=== PATIENT | male | born 1960 | race Caucasian/White ===

== ENCOUNTER → 2022-11-06 | Outpatient (CLI) | payer OTHER ==
--- NOTE | 2022-11-06 16:49 | CA ---
Transthoracic Echo Report Name: Josias Tejada Age: 62 Gender: M : 1960 Exam Date: 11/06/2022 12:31 Exam Location: [facility] Ht (in): 72 Wt (lb): 280 Ordering Physician: Hansa Beavers DO Attending/Referring Phys: Packager Queta Rosenthal RDCS Procedure CPT: Indications: I48.91 UNSPECIFIED ATRIAL FIBRILLATION Cardiac Hx: Technical Quality: Fair Contrast 1: Total Dose (mL): Contrast 2: Total Dose (mL): MEASUREMENTS (Male / Female) Normal Values 2D ECHO LV Diastolic Diameter PLAX 4.9 cm 4.2 - 5.9 / 3.9 - 5.3 cm LV Systolic Diameter PLAX 3.3 cm IVS Diastolic Thickness 1.5 cm 0.6 - 1.0 / 0.6 - 0.9 cm LVPW Diastolic Thickness 1.4 cm 0.6 - 1.0 / 0.6 - 0.9 cm LV Relative Wall Thickness 0.6 RV Internal Dim ED PLAX 3.0 cm LA Systolic Diameter LX 4.4 cm 3.0 - 4.0 / 2.7 - 3.8 cm LV Diastolic Volume MOD 4C 92.2 cm??? LV Systolic Volume MOD 4C 59.8 cm??? LV Ejection Fraction MOD 4C 35.1 % LV Cardiac Index MOD 4C 913.6 cm???/min???m??? LV Diastolic Length 4C 8.3 cm LV Systolic Length 4C 7.3 cm LV Diastolic Volume MOD 2C 101.3 cm??? LV Systolic Volume MOD 2C 63.8 cm??? LV Ejection Fraction MOD 2C 37.0 % LV Cardiac Index MOD 2C 1058.1 cm???/min???m??? LV Diastolic Length 2C 8.2 cm LV Systolic Length 2C 7.2 cm LA Volume 66.8 cm??? 18 - 58 / 22 - 52 cm??? M-MODE Aortic Root Diameter MM 3.3 cm MV E Point Septal Separation 0.3 cm AV Cusp Separation MM 2.3 cm DOPPLER AV Peak Velocity 130.7 cm/s AV Peak Gradient 6.8 mmHg MV Area PHT 4.3 cm??? MV Deceleration Time 201.2 ms TR Peak Velocity 201.3 cm/s TR Peak Gradient 16.2 mmHg Right Ventricular Systolic Press 21.2 mmHg FINDINGS Left Ventricle Left ventricular ejection fraction is estimated at 45-50 %. Left ventricular wall thickness normal. Moderately increased septal wall thickness. Right Ventricle Normal right ventricular size. Right ventricular systolic pressure within normal limits. Right Atrium Normal right atrial size. Left Atrium Mildly increased left atrial diameter. Mildly increased left atrial volume. Mitral Valve Structurally normal mitral valve. Mitral annular calcification. No mitral stenosis, regurgitation or prolapse. Aortic Valve Trileaflet aortic valve. No aortic valve stenosis or regurgitation. Tricuspid Valve Structurally normal tricuspid valve. Trace tricuspid regurgitation. Pulmonic Valve Pulmonic valve not well visualized. Trace pulmonic regurgitation. Pericardium No pericardial effusion. Aorta Normal size aortic root and proximal ascending aorta. CONCLUSIONS Mild LV systolic dysfunction Previewed by: Dr. Talha Barr MD (Electronically Signed) Final Date: 06 November 2022 16:49
== END | disposition home or self-care (01) ==
LOC: RADECHMAIN 12:11
PROVIDERS: ATTEND Family Medicine
DX: I51.9 Heart disease, unspecified (principal); I48.91 Unspecified atrial fibrillation
CPT/HCPCS: 93306

== ENCOUNTER 2022-11-10 10:58 | Day surgery (SDC) | payer OTHER ==
[2022-11-10] MEDS ORDERED: LACTATED RINGERS 1,000 ML IV SCH (11:13)
[2022-11-10] MEDS ORDERED: LIDOCAINE 1% (10MG/ML) FOR IV START INTRADERMA PRN (11:13)
[2022-11-10 11:36] LABS: Glucose,Whole Blood 88 mg/dL (70-110)
[2022-11-10 12:19] VITALS: TEMP 97
[2022-11-10] MEDS ORDERED: LIDOCAINE 2% INJ 20 MG/ML (2 ML VIAL) ONE (12:26)
[2022-11-10] MEDS ORDERED: PROPOFOL 10 MG/ML 20 ML VIAL IV ONE (12:26)
[2022-11-10 13:58] VITALS: RESP 18
[2022-11-10 14:20] VITALS: BP 126/79; PULSE 53
--- NOTE | 2022-11-10 16:39 | P.TEE ---
Date of Procedure: 11/10/22 Description of Procedure(s): Procedure performed: 1. Transesophageal Echocardiogram 2. Bubble Study 3. Synchronized Cardioversion. Indications: Atrial fibrillation Consent: I have discussed the risks, benefits and alternative therapies for the above-mentioned procedure. The patient has indicated understanding and acceptance of the risks of the procedure. Signed consent was obtained and was placed in the paper chart. Procedural Steps: Timeout was performed in usual fashion. Patient's heart rate, blood pressure, oxygen saturation and ECG were monitored. Bite block was placed between the jaw. Sedation was administered by anesthesia team. Please refer to their documentation. DERIK probe was advanced without difficulty and without any immediate complications to the esophagus. DERIK study was performed with color flow doppler, pulsed wave doppler and continuous wave doppler. Agitated saline bubbles were injected to assess for any intra-atrial shunt. The probe was then removed. Pacer pads were placed on the chest and back. Synchronized cardioversion was performed using 200J. It was successful in 1 attempt. Patient tolerated the procedure well. Patient was transferred to the post procedure area in stable and satisfactory condition. Complications: none FINDINGS Left Atrium : [Normal Left atrial size. No evidence of mass or thrombus seen] Left Atrial Appendage: [No evidence of thrombus or mass seen in WALT] Inter atrial septum: Redundant interatrial septum with evidence of PFO by color doppler and bubble study. Left Ventricle: [Normal global LV size and systolic function] Right Atrium: [Normal overall RV size] Right Ventricle: [Normal global RV size and systolic function] Aortic Valve: [Structurally normal Trileaflet, no significant calcification. No significant stenosis or regurgitation on color doppler assessment. ] Mitral Valve: [Struturally normal. No evidence of prolapse. Mild MR, likely functional. Pulmonic Valve: [Not well visualized.] Tricuspid Valve: [Structurally normal. ] Ascending aorta, Aortic root and Aortic arch: [Mild intimal thickening. No evidence of large atheroma or bulky calcification] Desceding aorta: [Mild intimal thickening. No evidence of large atheroma or bulky calcification] CONCLUSION: 1. No evidence of LA or WALT thrombus 2. Redundant inter atrial septum with evidence of patent foramen ovale 3. Successful cardioversion with 200J, 1 attempt
== END 2022-11-10 14:27 | disposition home or self-care (01) ==
LOC: OR 10:58
PROVIDERS: ATTEND Student in an Organized Health Care Education/Training Program
DX: I48.19 Other persistent atrial fibrillation (principal); Q21.12 Patent foramen ovale; I10 Essential (primary) hypertension; E66.9 Obesity, unspecified; Z68.38 Body mass index [BMI] 38.0-38.9, adult; F10.21 Alcohol dependence, in remission; Z86.69 Personal history of other diseases of the nervous system and sense organs; Z87.891 Personal history of nicotine dependence; G47.33 Obstructive sleep apnea (adult) (pediatric); E78.5 Hyperlipidemia, unspecified; Z79.811 Long term (current) use of aromatase inhibitors; Z79.899 Other long term (current) drug therapy; K21.9 Gastro-esophageal reflux disease without esophagitis
CPT/HCPCS: 93312; 93320; 93325; 92960; J2704; J2001

== ENCOUNTER → 2023-02-14 | Outpatient (CLI) | payer OTHER ==
--- NOTE | 2023-02-14 12:24 | P.SLEEP ---
History of Present Illness DATE: 02/14/2023 CONSULTATION/NEW PATIENT EVALUATION HISTORY OF PRESENT ILLNESS/SLEEP-WAKE EVALUATION: 62-year-old gentleman had been evaluated in the sleep center for possible obstructive sleep apnea hypopnea syndrome. SLEEP SCHEDULE: Usually sleep schedule from 11 PM to 6 AM 7 days a week. FALLING ASLEEP: No problems with falling asleep. DURING SLEEP: Patient snores and has witnessed episodes of stop breathing during the sleep. Positive history of awakenings from sleep 3 times with nocturia and restless leg symptoms. No history of hypnogogical hallucinations, sleep paralysis, or cataplexy. DURING THE DAY/WAKE STATE: Patient feels sleepiness during the day, has difficulties to place attention. Russell sleepiness scale is 4. Patient takes 1 nap during the day. PAST MEDICAL HISTORY: Hypertension, atrial fibrillation converted to normal sinus rhythm by cardioversion, left knee arthritis, depression, pulmonary hypertension. PAST SURGICAL HISTORY: Vasectomy, sinuses surgery. MEDICATIONS: Eliquis, lamotrigine, Ezetimibe, metoprolol, amlodipine, risperidone. SOCIAL HISTORY: Quit smoking at age of 21, alcohol consumption daily. FAMILY HISTORY: Heart problems, stroke, cancer, diabetes. REVIEW OF SYSTEMS: Snoring, multiple awakenings from sleep. No fevers. No double vision. No recent chest pain. No shortness of breath. No abdominal pain. No bleeding episodes. No blood in urine. No seizure episodes. PHYSICAL EXAMINATION: GENERAL: A pleasant patient without any distress. VITAL SIGNS: BP 128/76 , HR 88 , RR 16 , weight 282.6 pounds, height 6 foot 0.5 inches, body mass index 37.7 . HEENT: PERRLA, EOMI. Evaluation of oropharynx showed tongue protrudes midline, position of soft palate Mallampati 2, wide pillars and extremely short distance between soft palate and posterior pharyngeal wall. NECK: Supple. No JVD. Thyroid is not palpable. 18.5 inches in circumference. LUNGS: Clear to percussion and to auscultation. Good air exchange. No wheezing or rhonchi. HEART: S1, S2 regular. No murmurs, gallops or rubs. ABDOMEN: Soft and nontender. Bowel sounds are present. No organomegaly appreciated. EXTREMITIES: No clubbing or cyanosis. SED SPECIAL EDUCATION TEACHER: Awake, alert, and oriented x3. Cranial nerves 2 to 7 intact. There is no fasciculation or atrophy noted. No focal deficits observed. ASSESSMENT: 1. Snoring, witnessed episodes of stop breathing during the sleep, small oropharyngeal airspace, wide neck 18.5 inches in circumference. Obstructive sleep apnea-hypopnea syndrome. 2. History of pulmonary hypertension. 3. Hypertension. 4. History of atrial fibrillation, status post cardioversion. 5 status post nasal surgery for sinuses problems. 6 . History of nasal polyps. 7. History of depression. 8. Status post vasectomy. 9. Obesity, BMI 37.7 PLAN: 1. Polysomnography for evaluation of patient's breathing during sleep. 2. CPAP/BiPAP titration if sleep study confirms obstructive sleep apnea- hypopnea syndrome. 3. Preferable position during sleep on the side. 4. No driving if patient feels any sleepiness. Patient is aware of civil and criminal liability for unsafe driving. 5. Sleep hygiene with regular sleep time for at least 7.5-8 hours. 6. Watching and losing weight. Thank you very much for referring this patient for consultation. Sincerely, Ellis Mcfarland MD, PhD, FAASM. Diplomat of [place] [employer], Sleep Medicine Board by [place] [employer] [employer] Shoe Clerk of [facility] [place] Past Medical History Past Medical History: GERD/Reflux, Hyperlipidemia, Hypertension, Osteoarthritis (OA), Skin Disorder Additional Past Medical History / Comment(s): see Dr Yoandy Goodwin, abnormal EKG after not feeling well. BP has been on the low side last office visit. torn L rotator cuff, torn meniscus left knee. arthritis in those joints. pt has been heavy drinker all his life. quit 3 weeks ago. ? sleep apnea no testing yet. eczema to hands History of Any Multi-Drug Resistant Organisms: None Reported Additional Past Surgical History / Comment(s): colonoscopy, several sinus surgeries Past Anesthesia/Blood Transfusion Reactions: No Reported Reaction Additional Past Anesthesia/Blood Transfusion Reaction / Comment(s): problems with intubation with last sinus surgery - pt not sure what the problem was. no paper work. "throat was cut" pt refused to complete surgery. no treatment done Smoking Status: Former smoker - Past Family History Father History Unknown: Yes Additional Family Medical History / Comment(s): didnt know bio dad Mother Family Medical History: Cancer, Coronary Artery Disease (CAD) Brother(s) Family Medical History: Coronary Artery Disease (CAD) Sister(s) Family Medical History: Coronary Artery Disease (CAD) Additional Family Medical History / Comment(s): stents , pacemaker Medications and Allergies Home Medications Medication Instructions Recorded Confirmed Type Amlodipine/Benazepril 5-20 1 tab PO DAILY 11/08/22 11/10/22 History Apixaban [Eliquis] 5 mg PO BID 11/08/22 11/10/22 History Dupilumab [Dupixent Pen] 300 mg SQ Q15D 11/08/22 11/10/22 History Ezetimibe [Zetia] 10 mg PO DAILY 11/08/22 11/10/22 History Famotidine 40 mg PO HS 11/08/22 11/10/22 History Ibuprofen [Motrin Ib] 800 mg PO DIRECTED PRN 11/08/22 11/10/22 History Meclizine [Antivert] 25 mg PO Q8H PRN 11/08/22 11/10/22 History Metoprolol Succinate (ER) [Toprol 50 mg PO HS 11/08/22 11/10/22 History Xl] Rosuvastatin Calcium 10 mg PO HS 11/08/22 11/10/22 History lamoTRIgine 200 mg PO DAILY 11/08/22 11/10/22 History risperiDONE 3 mg PO HS 11/08/22 11/10/22 History Allergies Allergy/AdvReac Type Severity Reaction Status Date / Time No Known Allergies Allergy Verified 11/10/22 11:14 Sleep Note - Sleep Note Sleep Note: Temperature: Pulse Rate: Respiratory Rate: Blood Pressure: SpO2: Height: Weight: BMI: Neck Circumference:
== END ==
LOC: 3 N SLEEP 11:39
PROVIDERS: ATTEND Internal Medicine
DX: G47.33 Obstructive sleep apnea (adult) (pediatric) (principal); I48.91 Unspecified atrial fibrillation; F32.A Depression, unspecified; E66.9 Obesity, unspecified; I27.20 Pulmonary hypertension, unspecified; Z68.37 Body mass index [BMI] 37.0-37.9, adult; Z98.890 Other specified postprocedural states; Z98.52 Vasectomy status; Z87.09 Personal history of other diseases of the respiratory system; Z79.01 Long term (current) use of anticoagulants; Z79.899 Other long term (current) drug therapy; Z87.891 Personal history of nicotine dependence; Z87.39 Personal history of other diseases of the musculoskeletal system and connective tissue
CPT/HCPCS: 99211

== ENCOUNTER 2023-03-27 19:30 | Outpatient (CLI) | payer OTHER ==
--- NOTE | 2023-03-28 13:38 | P.PCN ---
Description of Procedure: POLYSOMNOGRAPHY REPORT PROCEDURE(S)/DATE(S): Polysomnography 03/27/2023 CLINICAL: Patient has been seen in the sleep center for evaluation of obstructive sleep apnea-hypopnea syndrome. Please see my consultation. Sleep study has been done for evaluation of patient breathing during the sleep. PROCEDURE: The standard montage for clinical polysomnography included the electroencephalogram, the electrooculogram, the mentalis surface electromyography and Lead II cardiography. The respiratory battery consisted of measurements of nasal/buccal air flow, pressure transducer measurements from nose, thoracic and/or abdominal effort and intercostal surface electromyography. Video monitoring has been done to check for any parasomnia events. Nocturnal oxyhemoglobin saturations were obtained by finger oximetry. Step-taylor titration with positive airway pressure was utilized to control the respiratory events, if necessary. RESULTS: During the diagnostic sleep study sleep efficiency was extremely short only 21.3 %. Latency to sleep onset was prolonged to 53.0 min. Sleep archite cture showed stage NI in acceptable range 7.8 %, Delta sleep was absent 0 %, REM sleep was absent 0 %. Total sleep time only 102.0 minutes. Respiratory channel showed 0 obstructive apneas, 0 mixed apneas, 0 central apneas, 14 hypopneas with lowest oxygen level 89%. Total apnea hypopnea index was 8.2. Heart rate was in the range between 76 and 97, average 81. EMG showed 29.4 periodic limb movements per hour with 0 micro-arousals per hour. IMPRESSIONS: 1. Patient slept only for 102 minutes, which is less than 2 hours and does not rule out to make any conclusions about patient respiration following the standard. 2. Significant periodic limb movements have been documented. Please see other impressions from consultation PLAN: 1. We will do home sleep apnea test. 2. Losing weight program. 3. Sleep hygiene with regular time in bed for at least 7-1/2 hours. 4. No driving if feeling sleepiness. 5. Please check iron profile including ferritin level. Low level of iron may increase the risk for periodic limb movements. Thank you very much for allowing me to participate in the management of your patient. Sincerely, Ellis Mcfarland MD, PhD, FAASM. Diplomat of [place] [employer], Sleep Medicine Board by [place] [employer] Purse Framer of [facility] [place]
== END 2023-03-28 06:05 | disposition home or self-care (01) ==
LOC: 3 N SLEEP 19:30
PROVIDERS: ATTEND Internal Medicine
DX: G47.33 Obstructive sleep apnea (adult) (pediatric) (principal); G47.61 Periodic limb movement disorder

== ENCOUNTER → 2023-04-13 | Outpatient (CLI) | payer OTHER ==
--- NOTE | 2023-04-18 13:49 | P.PCN ---
Description of Procedure: CLINICAL: A home sleep apnea test has been done for confirmation of possible obstructive sleep apnea-hypopnea syndrome. DESCRIPTION OF PROCEDURE: RESULTS: Recording time was 8 hours 7 minutes. Evaluation time was 7 hours 56 minutes. Evaluation time is sufficient for making conclusion about results of the test. Raw data of sleep recording has been reviewed and is adequate. Respiratory channel showed 17 apneas and 128 hypopneas. Apnea-hypopnea index was 18.3 per hour. Pulse rate in the range between minimum 54, maximum 128, average 71 by computer calculation. Lowest desaturation was 81%. IMPRESSION: 1. Moderate Obstructive Sleep Apnea Hypopnea Syndrome. Please see other impressions from consultation. PLAN: 1. The patient should have PAP titration for correction of respiratory abnormallities during sleep. 2. I will see patient for follow up visit to discuss results of the test, evaluate clinical response on treatment with PAP therapy and make any necessary adjustments related to mask fitting, pressure, and humidification. 3. Watching and losing weight. 4. Sleep hygiene with regular time in bed for at least 8 hours. 5. No driving if feeling any sleepiness. Thank you very much for allowing me to participate in the management of your patient. Sincerely, Ellis Mcfarland MD, PhD, FAASM Diplomat of [place] [employer] Sleep Medicine Board of [place] [employer] Actuary of [facility] [place] cc: Hansa Beavers DO
== END ==
LOC: 3 N SLEEP 12:58
PROVIDERS: ATTEND Internal Medicine
DX: G47.33 Obstructive sleep apnea (adult) (pediatric) (principal)

== ENCOUNTER 2023-05-04 13:27 | Observation (INO) | payer OTHER ==
[2023-05-04 14:20] LABS: Anisocytosis Slight; Basophils % (A) 0 %; Eosinophils % (A) 1 %; HCT 44.3 % (39.0-53.0); HGB 14.6 gm/dL (13.0-17.5); Lymphocytes # (A) 2.2 k/uL (1.0-4.8); Lymphocytes % (A) 48 %; MCH 29.4 pg (25.0-35.0); MCHC 32.9 g/dL (31.0-37.0); MCV 89.3 fL (80.0-100.0); Mean Platelet Volume 9.8; Monocytes # (A) 0.4 k/uL (0-1.0); Monocytes % (A) 8 %; Neutrophils # (A) 1.9 k/uL (1.3-7.7); Neutrophils % (A) 41 %; Platelet Count 155 k/uL (150-450); RBC 4.96 m/uL (4.30-5.90); RDW 18.8 % (11.5-15.5); WBC 4.6 k/uL (3.8-10.6)
--- NOTE | 2023-05-04 14:25 | XR ---
EXAMINATION TYPE: XR chest 2V DATE OF EXAM: 05/04/2023 COMPARISON: NONE HISTORY: Shortness of breath TECHNIQUE: Frontal and lateral views of the chest are obtained. FINDINGS: Scattered senescent parenchymal changes noted. No evidence for infiltrate. No evidence for atelectasis. Heart size is stable. Mediastinal structures are stable and grossly unremarkable. No evidence for hilar prominence. Degenerative changes dorsal spine. IMPRESSION: 1. No evidence for acute pulmonary disease.
[2023-05-04] MEDS: SODIUM CHLORIDE 0.9% 500 ML 500 ML IV STA (14:27)
[2023-05-04] MEDS: DILTIAZEM DRIP BOLUS FROM BAG 1 MG SOLN IV ONE (14:27)
[2023-05-04] MEDS: DILTIAZEM 125 MG in SODIUM CHLORIDE 0.9% 100 ML IV SCH (14:27)
[2023-05-04 14:32] LABS: INR 1.1 (<1.2); Partial Thromboplastin Time 26.7 sec (22.0-30.0); Prothrombin Time 11.7 sec (10.0-12.5)
[2023-05-04 14:37] LABS: ALT 74 U/L (4-49); AST 69 U/L (17-59); African American GFR (CKD) >90 (>60 ml/min/1.73 sqM); Albumin 4.7 g/dL (3.5-5.0); Alkaline Phosphatase 78 U/L (38-126); Anion Gap 7 mmol/L; Blood Urea Nitrogen 15 mg/dL (9-20); Calcium 9.9 mg/dL (8.4-10.2); Carbon Dioxide 25 mmol/L (22-30); Chloride 105 mmol/L (98-107); Glucose 135 mg/dL (74-99); Non-African American GFR(CKD) 83 (>60 ml/min/1.73 sqM); Potassium 4.2 mmol/L (3.5-5.1); Sodium 137 mmol/L (137-145); Total Bilirubin 0.9 mg/dL (0.2-1.3); Total Protein 8.2 g/dL (6.3-8.2)
[2023-05-04] MEDS ORDERED: NITROGLYCERIN SL TABS 0.4 MG TAB SUBLINGUAL PRN (15:48)
[2023-05-04] MEDS ORDERED: HYDROcodone/APAP 10-325MG 1 EACH TAB PO PRN (15:49)
--- NOTE | 2023-05-04 15:51 | ED ---
Arrhythmia/Palpitations HPI - General Chief Complaint: Arrhythmia/Palpitations Stated Complaint: AFIB Time Seen by Provider: 05/04/23 13:33 Source: patient, RN notes reviewed Mode of arrival: ambulatory Limitations: no limitations - History of Present Illness Initial Comments: 63-year-old male presents emergency department complaint of palpitations, A-fib. Patient states he is scheduled for hand surgery today was found to be in A-fib by surgeon. Patient was sent here actually discussed with his mask designer Dr. Pitt. Patient states he has no current symptoms other mild palpitations. Patient normally takes Eliquis for his A-fib. Patient states his last dose of metoprolol was last night. - Related Data Home Medications Medication Instructions Recorded Confirmed Apixaban [Eliquis] 5 mg PO BID 11/08/22 05/04/23 Dupilumab [Dupixent Pen] 300 mg SQ Q14D 11/08/22 05/04/23 Ezetimibe [Zetia] 10 mg PO DAILY 11/08/22 05/04/23 Famotidine 40 mg PO HS 11/08/22 05/04/23 Rosuvastatin Calcium 10 mg PO HS 11/08/22 05/04/23 lamoTRIgine 200 mg PO DAILY 11/08/22 05/04/23 risperiDONE 3 mg PO HS 11/08/22 05/04/23 Doxycycline Hyclate 100 mg PO BID 05/04/23 05/04/23 HYDROcodone/APAP 10-325MG [[employer] 1 tab PO Q4-6H PRN 05/04/23 05/04/23 10-325] Metoprolol Succinate (ER) [Toprol 50 mg PO HS 05/04/23 05/04/23 Xl] Pantoprazole [Protonix] 40 mg PO DAILY@1500 05/04/23 05/04/23 amLODIPine BESYLATE/BENAZEPRIL 1 cap PO DAILY 05/04/23 05/04/23 [Lotrel 5-20 mg Capsule] predniSONE See Taper PO DAILY 05/04/23 05/04/23 Allergies Allergy/AdvReac Type Severity Reaction Status Date / Time No Known Allergies Allergy Verified 05/04/23 14:34 Review of Systems ROS Statement: Those systems with pertinent positive or pertinent negative responses have been documented in the HPI. ROS Other: All systems not noted in ROS Statement are negative. Past Medical History Past Medical History: Atrial Fibrillation, GERD/Reflux, Hyperlipidemia, Hypertension, Osteoarthritis (OA), Skin Disorder Additional Past Medical History / Comment(s): see Dr Yoandy Calderón&Karen, abnormal EKG after not feeling well. BP has been on the low side last office visit. torn L rotator cuff, torn meniscus left knee. arthritis in those joints. pt has been heavy drinker all his life. quit 3 weeks ago. ? sleep apnea no testing yet. eczema to hands History of Any Multi-Drug Resistant Organisms: None Reported Additional Past Surgical History / Comment(s): colonoscopy, several sinus surgeries Past Anesthesia/Blood Transfusion Reactions: No Reported Reaction Additional Past Anesthesia/Blood Transfusion Reaction / Comment(s): problems with intubation with last sinus surgery - pt not sure what the problem was. no paper work. "throat was cut" pt refused to complete surgery. no treatment done Past Psychological History: Bipolar Smoking Status: Former smoker Past Alcohol Use History: Occasional Past Drug Use History: None Reported - Past Family History Father History Unknown: Yes Additional Family Medical History / Comment(s): didnt know bio dad Mother Family Medical History: Cancer, Coronary Artery Disease (CAD) Brother(s) Family Medical History: Coronary Artery Disease (CAD) Sister(s) Family Medical History: Coronary Artery Disease (CAD) Additional Family Medical History / Comment(s): stents , pacemaker General Exam Limitations: no limitations General appearance: alert, in no apparent distress Head exam: Present: atraumatic, normocephalic, normal inspection Eye exam: Present: normal appearance, PERRL, EOMI. Absent: scleral icterus, conjunctival injection, periorbital swelling ENT exam: Present: normal exam, normal oropharynx, mucous membranes moist Neck exam: Present: normal inspection, full ROM. Absent: tenderness, meningismus, lymphadenopathy Respiratory exam: Present: normal lung sounds bilaterally. Absent: respiratory distress, wheezes, rales, rhonchi, stridor Cardiovascular Exam: Present: tachycardia, irregular rhythm, normal heart sounds. Absent: regular rate, normal rhythm, systolic murmur, diastolic murmur, rubs, gallop, clicks GI/Abdominal exam: Present: soft, normal bowel sounds. Absent: distended, tenderness, guarding, rebound, rigid Course Vital Signs 05/04/23 05/04/23 05/04/23 13:29 14:05 14:29 Temperature 98.1 F Pulse Rate 115 H 155 H 111 H Respiratory 20 18 18 Rate Blood Pressure 111/78 122/70 O2 Sat by Pulse 99 96 96 Oximetry 05/04/23 15:14 Temperature Pulse Rate 108 H Respiratory 16 Rate Blood Pressure 130/79 O2 Sat by Pulse 98 Oximetry EKG Findings - EKG Comments: EKG Findings:: EKG performed at 13: 37 A-fib with RVR rate of 126 QRS 86 QT/QTc 303/378 - EKG Results: EKG: interpreted by BLAKE Medical Decision Making - Medical Decision Making Was pt. sent in by a medical professional or institution (, PA, CAR PICK UP DRIVER, urgent care, hospital, or senior care...) When possible be specific @ -[Surgeon, mask designer Did you speak to anyone other than the patient for history (EMS, parent, family, police, friend...)? What history was obtained from this source @ -No Did you review nursing and triage notes (agree or disagree)? Why? @ -I reviewed and agree with nursing and triage notes Were old charts reviewed (outside hosp., previous admission, EMS record, old EKG, old radiological studies, urgent care reports/EKG's, senior care records)? Report findings @ -No old charts were reviewed Differential Diagnosis (chest pain, altered mental status, abdominal pain women, abdominal pain men, vaginal bleeding, weakness, fever, dyspnea, syncope, headache, dizziness, GI bleed, back pain, seizure, CVA, palpatations, mental health, musculoskeletal)? @ -Differential Palpitations Ventricular arrhythmias, atrial arrhythmias, myocardial infarction, anemia, thyrotoxicosis, electrolyte imbalance, hypokalemia, pulmonary embolism, pulmonary disease, drugs, alcohol, anxiety, stress.... This is not meant to be an all-inclusive list. EKG interpreted by me (3pts min.). @ -As above X-rays interpreted by me (1pt min.). @ -[Chest x-ray shows no acute cardiopulmonary process CT interpreted by me (1pt min.). @ -None done U/S interpreted by me (1pt. min.). @ -None done What testing was considered but not performed or refused? (CT, X-rays, U/S, labs)? Why? @ -None What meds were considered but not given or refused? Why? @ -None Did you discuss the management of the patient with other professionals (professionals i.e. , PA, CAR PICK UP DRIVER, lab, RT, psych nurse, oncology social worker, mask designer, teacher, horticultural technical officer, showcase trimmer)? Give summary @ -Dr. Lopez for admission for A-fib RVR Was smoking cessation discussed for >3mins.? @ -No Was critical care preformed (if so, how long)? @ -35-minute Were there social determinants of health that impacted care today? How? (Homelessness, low income, unemployed, alcoholism, drug addiction, transportation, low edu. Level, literacy, decrease access to med. care, senior care, rehab)? @ -No Was there de-escalation of care discussed even if they declined (Discuss DNR or withdrawal of care, Hospice)? DNR status @ -No What co-morbidities impacted this encounter? (DM, HTN, Smoking, COPD, CAD, Cancer, CVA, ARF, Chemo, Hep., AIDS, mental health diagnosis, sleep apnea, morbid obesity)? @ -A-fib e Was patient admitted / discharged? Hospital course, mention meds given and route, prescriptions, significant lab abnormalities, going to OR and other pertinent info. @ -[Admitted to the hospital for A-fib RVR patient was started on Cardizem. Patient will continue anticoagulants. Patient will be closely monitored and admitted for further treatment. Undiagnosed new problem with uncertain prognosis? @ -No Drug Therapy requiring intensive monitoring for toxicity (Heparin, Nitro, Insulin, Cardizem)? @ -Cardizem Were any procedures done? @ -No Diagnosis/symptom? @ -[A-fib RVR Acute, or Chronic, or Acute on Chronic? @ -Acute Uncomplicated (without systemic symptoms) or Complicated (systemic symptoms)? @ -[Complicated Side effects of treatment? @ -[No Exacerbation, Progression, or Severe Exacerbation? @ -No Poses a threat to life or bodily function? How? (Chest pain, [place], [place], pneumonia, PE, COPD, DKA, ARF, appy, cholecystitis, CVA, Diverticulitis, Homicidal, Suicidal, threat to staff... and all critical care pts) @ -[Yes dysrhythmia - Lab Data Result diagrams: 05/04/23 14:00 05/04/23 14:00 Lab Results 05/04/23 05/04/23 05/04/23 Range/Units 14:00 14:00 14:00 WBC 4.6 (3.8-10.6) k/uL RBC 4.96 (4.30-5.90) m/uL Hgb 14.6 (13.0-17.5) gm/dL Hct 44.3 (39.0-53.0) % MCV 89.3 (80.0-100.0) fL MCH 29.4 (25.0-35.0) pg MCHC 32.9 (31.0-37.0) g/dL RDW 18.8 H (11.5-15.5) % Plt Count 155 (150-450) k/uL MPV 9.8 Neutrophils % 41 % Lymphocytes % 48 % Monocytes % 8 % Eosinophils % 1 % Basophils % 0 % Neutrophils # 1.9 (1.3-7.7) k/uL Lymphocytes # 2.2 (1.0-4.8) k/uL Monocytes # 0.4 (0-1.0) k/uL Eosinophils # 0.0 (0-0.7) k/uL Basophils # 0.0 (0-0.2) k/uL Anisocytosis Slight PT 11.7 (10.0-12.5) sec INR 1.1 (<1.2) APTT 26.7 (22.0-30.0) sec Sodium 137 (137-145) mmol/L Potassium 4.2 (3.5-5.1) mmol/L Chloride 105 (98-107) mmol/L Carbon Dioxide 25 (22-30) mmol/L Anion Gap 7 mmol/L BUN 15 (9-20) mg/dL Creatinine 0.98 (0.66-1.25) mg/dL Est GFR (CKD-EPI)AfAm >90 (>60 ml/min/1.73 sqM) Est GFR (CKD-EPI)NonAf 83 (>60 ml/min/1.73 sqM) Glucose 135 H (74-99) mg/dL Calcium 9.9 (8.4-10.2) mg/dL Magnesium 2.0 (1.6-2.3) mg/dL Total Bilirubin 0.9 (0.2-1.3) mg/dL AST 69 H (17-59) U/L ALT 74 H (4-49) U/L Alkaline Phosphatase 78 (38-126) U/L Troponin I (0.000-0.034) ng/mL Total Protein 8.2 (6.3-8.2) g/dL Albumin 4.7 (3.5-5.0) g/dL 05/04/23 Range/Units 14:00 WBC (3.8-10.6) k/uL RBC (4.30-5.90) m/uL Hgb (13.0-17.5) gm/dL Hct (39.0-53.0) % MCV (80.0-100.0) fL MCH (25.0-35.0) pg MCHC (31.0-37.0) g/dL RDW (11.5-15.5) % Plt Count (150-450) k/uL MPV Neutrophils % % Lymphocytes % % Monocytes % % Eosinophils % % Basophils % % Neutrophils # (1.3-7.7) k/uL Lymphocytes # (1.0-4.8) k/uL Monocytes # (0-1.0) k/uL Eosinophils # (0-0.7) k/uL Basophils # (0-0.2) k/uL Anisocytosis PT (10.0-12.5) sec INR (<1.2) APTT (22.0-30.0) sec Sodium (137-145) mmol/L Potassium (3.5-5.1) mmol/L Chloride (98-107) mmol/L Carbon Dioxide (22-30) mmol/L Anion Gap mmol/L BUN (9-20) mg/dL Creatinine (0.66-1.25) mg/dL Est GFR (CKD-EPI)AfAm (>60 ml/min/1.73 sqM) Est GFR (CKD-EPI)NonAf (>60 ml/min/1.73 sqM) Glucose (74-99) mg/dL Calcium (8.4-10.2) mg/dL Magnesium (1.6-2.3) mg/dL Total Bilirubin (0.2-1.3) mg/dL AST (17-59) U/L ALT (4-49) U/L Alkaline Phosphatase (38-126) U/L Troponin I <0.012 (0.000-0.034) ng/mL Total Protein (6.3-8.2) g/dL Albumin (3.5-5.0) g/dL Critical Care Time Critical Care Time: Yes Total Critical Care Time: 35 Disposition Clinical Impression: Atrial fibrillation with RVR Disposition: ADMITTED IP TO THIS HOSP Condition: Fair Referrals: Hansa Beavers DO [Primary Care Provider] - 1-2 days Time of Disposition: 15:31
[2023-05-04] MEDS: APIXABAN 5 MG TAB PO SCH (16:00)
[2023-05-04] MEDS: ATORVASTATIN 20 MG TAB PO SCH (23:20)
[2023-05-04] MEDS: FAMOTIDINE 20 MG TAB PO SCH (23:20)
[2023-05-04] MEDS: METOPROLOL SUCCINATE (ER) 50 MG TAB.ER.24H PO SCH (23:20)
[2023-05-04] MEDS: risperiDONE 1 MG TAB PO SCH (23:20)
[2023-05-05 07:24] VITALS: TEMP 98.2
[2023-05-05] MEDS: amLODIPine 5 MG TAB PO SCH (08:51)
[2023-05-05] MEDS: lisinopriL 20 MG TAB PO SCH (08:51)
[2023-05-05] MEDS: lamoTRIgine 100 MG TAB PO SCH (08:51)
[2023-05-05] MEDS: EZETIMIBE 10 MG TAB PO SCH (08:51)
[2023-05-05] MEDS ORDERED: NON FORMULARY DRUG (Amlodipine Besylate/Benazepril [Lotrel 5-20 Mg Capsule] 1 EACH Capsule PO SCH (09:00)
[2023-05-05 12:05] VITALS: BP 117/63; PULSE 79; RESP 18
--- NOTE | 2023-05-05 13:00 | P.HPIM ---
History of Present Illness H&P Date: 05/05/23 History of present illness; patient 63-year-old gentleman past medical history significant for persistent A-fib who was sent into the ER from hand surgeon's office after being found to be in A-fib with RVR. Patient was scheduled to undergo hand surgery today but when he presented to the hand surgeons office, patient was found to be in A-fib with RVR. They contacted patient's cloth shrinker and they told him to come to the ER. Patient denies any complaint of palpitation. There was no complaint of chest pain. There was no complaint of orthopnea or PND. There is no complaint of nausea, vomiting, abdominal pain. Initial lab work done in the ER showed WBC 4.6, hemoglobin 14.6, platelet count 155, sodium 137, potassium 4.2, BUN 15, creatinine 0.98, glucose 135, troponin 0.012 EKG done in the ER showed heart rate of 91, no ST segment elevation or depression seen, no T-wave inversions seen. Irregular rate and rhythm Chest x-ray done in the ER no evidence for acute pulmonary disease Patient admitted to internal medicine service REVIEW OF SYSTEMS: CONSTITUTIONAL: No fever, no malaise, no fatigue. HEENT: No recent visual problems or hearing problems. Denied any sore throat. CARDIOVASCULAR: No chest pain, orthopnea, PND, no palpitations, no syncope. PULMONARY: No shortness of breath, no cough, no hemoptysis. GASTROINTESTINAL: No diarrhea, no nausea, no vomiting, no abdominal pain. NEUROLOGICAL: No headaches, no weakness, no numbness. HEMATOLOGICAL: Denies any bleeding or petechiae. GENITOURINARY: Denies any burning micturition, frequency, or urgency. MUSCULOSKELETAL/RHEUMATOLOGICAL: Denies any joint pain, swelling, or any muscle pain. ENDOCRINE: Denies any polyuria or polydipsia. The rest of the 14-point review of systems is negative. PHYSICAL EXAMINATION: GENERAL: The patient is alert and oriented x3, not in any acute distress. Well developed, well nourished. HEENT: Pupils are round and equally reacting to light. EOMI. No scleral icterus. No conjunctival pallor. Normocephalic, atraumatic. No pharyngeal erythema. No thyromegaly. CARDIOVASCULAR: S1 and S2 present. No murmurs, rubs, or gallops. PULMONARY: Chest is clear to auscultation, no wheezing or crackles. ABDOMEN: Soft, nontender, nondistended, normoactive bowel sounds. No palpable organomegaly. MUSCULOSKELETAL: No joint swelling or deformity. EXTREMITIES: No cyanosis, clubbing, or pedal edema. NEUROLOGICAL: Gross neurological examination did not reveal any focal deficits. SKIN: No rashes. Assessment and plan Paroxysmal A-fib with RVR Hyperlipidemia History of seizures Monitor vital signs Monitor CBC Monitor CMP Continue telemetry monitoring Trend troponins. Patient started on Cardizem drip, Continue Toprol-XL continue Eliquis Resume home meds Consult cardiology Labs and medication were reviewed.. Continue same treatment. Continue with symptomatic treatment. Resume home medication. Monitor labs and vitals. DVT and GI prophylaxis. Further recommendations as per clinical course of the patient Dictation was produced using [employer] dictation software. please excuse any grammatical, word or spelling errors. Past Medical History Past Medical History: Atrial Fibrillation, GERD/Reflux, Hyperlipidemia, Hypertension, Osteoarthritis (OA), Skin Disorder Additional Past Medical History / Comment(s): sleep study x2, does not know results. DERIK with Dr. Pitt 10/2022 History of Any Multi-Drug Resistant Organisms: None Reported Additional Past Surgical History / Comment(s): colonoscopy, several sinus surgeries Past Anesthesia/Blood Transfusion Reactions: No Reported Reaction Additional Past Anesthesia/Blood Transfusion Reaction / Comment(s): problems with intubation with last sinus surgery - pt not sure what the problem was. no paper work. "throat was cut" pt refused to complete surgery. no treatment done Past Psychological History: Bipolar Additional Psychological History / Comment(s): ? ADD Smoking Status: Former smoker Past Alcohol Use History: Occasional Additional Past Alcohol Use History / Comment(s): quit smoker at 21 yrs old < 1ppd, Hx lifelong drinker, tried quitting alcohol last september. states he currently drinks 10-15 drinks per day 05/05/2023 Past Drug Use History: None Reported - Past Family History Father History Unknown: Yes Additional Family Medical History / Comment(s): didnt know bio dad Mother Family Medical History: Cancer, Coronary Artery Disease (CAD) Brother(s) Family Medical History: Coronary Artery Disease (CAD) Sister(s) Family Medical History: Coronary Artery Disease (CAD) Additional Family Medical History / Comment(s): stents , pacemaker Medications and Allergies Home Medications Medication Instructions Recorded Confirmed Type Apixaban [Eliquis] 5 mg PO BID 11/08/22 05/04/23 History Dupilumab [Dupixent Pen] 300 mg SQ Q14D 11/08/22 05/04/23 History Ezetimibe [Zetia] 10 mg PO DAILY 11/08/22 05/04/23 History Famotidine 40 mg PO HS 11/08/22 05/04/23 History Rosuvastatin Calcium 10 mg PO HS 11/08/22 05/04/23 History lamoTRIgine 200 mg PO DAILY 11/08/22 05/04/23 History risperiDONE 3 mg PO HS 11/08/22 05/04/23 History Doxycycline Hyclate 100 mg PO BID 05/04/23 05/04/23 History HYDROcodone/APAP 10-325MG [[place] 1 tab PO Q4-6H PRN 05/04/23 05/04/23 History 10-325] Metoprolol Succinate (ER) [Toprol 50 mg PO HS 05/04/23 05/04/23 History Xl] Pantoprazole [Protonix] 40 mg PO DAILY@1500 05/04/23 05/04/23 History amLODIPine BESYLATE/BENAZEPRIL 1 cap PO DAILY 05/04/23 05/04/23 History [Lotrel 5-20 mg Capsule] predniSONE See Taper PO DAILY 05/04/23 05/04/23 History Allergies Allergy/AdvReac Type Severity Reaction Status Date / Time No Known Allergies Allergy Verified 05/04/23 14:34 Physical Exam Vitals: Vital Signs Temp Pulse Pulse Resp BP BP Pulse Ox 05/05/23 08:45 83 16 131/83 96 05/05/23 08:05 96 05/05/23 04:00 98.2 F 72 18 119/70 97 05/05/23 00:00 64 16 117/70 98 05/04/23 20:55 90 18 118/70 97 05/04/23 20:04 98 16 131/87 97 05/04/23 20:00 97.8 F 71 16 128/81 97 05/04/23 17:58 98 16 109/69 97 05/04/23 16:02 122 H 16 128/73 97 05/04/23 15:14 108 H 16 130/79 98 05/04/23 14:29 111 H 18 96 05/04/23 14:05 155 H 18 122/70 96 05/04/23 13:29 98.1 F 115 H 20 111/78 99 Intake and Output 05/04/23 05/05/23 05/05/23 22:59 06:59 14:59 Intake Total 8 10 Balance 8 10 Intake: IV 10 Invasive Line 1 10 Intake, IV Titration 8 Amount Diltiazem 125 mg In 8 Sodium Chloride 0.9% 100 ml @ 5 MG/HR 5 mls/hr IV .Q24H [facility] Rx#:[id number] Other: # Voids 1 1 Weight 126.099 kg Results CBC & Chem 7: 05/04/23 14:00 05/04/23 14:00 Labs: Abnormal Lab Results - Last 24 Hours (Table) 05/04/23 05/04/23 Range/Units 14:00 14:00 RDW 18.8 H (11.5-15.5) % Glucose 135 H (74-99) mg/dL AST 69 H (17-59) U/L ALT 74 H (4-49) U/L Thrombosis Risk Factor Assmnt - Choose All That Apply Any of the Below Risk Factors Present?: Yes Each Factor Represents 1 point: Obesity (BMI >25) Other Risk Factors: Yes Each Risk Factor Represents 2 Points: Age 61-74 years Other congenital or acquired thrombophilia - If yes, enter type in comment: No Thrombosis Risk Factor Assessment Total Risk Factor Score: 3 Thrombosis Risk Factor Assessment Level: Moderate Risk
[2023-05-05] MEDS: FLECAINIDE 50 MG TAB PO SCH (13:34)
--- NOTE | 2023-05-05 14:18 | P.CRDCN ---
History of Present Illness History of present illness: HISTORY OF PRESENTING ILLNESS This is a pleasant 63-year-old male past medical history significant for with paroxysmal atrial fib status post cardioversion, hypertension, sleep ap milo, heavy alcohol use, dyslipidemia and obesity. He follows in the office with Dr. Pitt. We have been asked to see in consultation for atrial fib. He was going to have an outpatient tendon repair of his right hand yesterday and was found to be in A. fib with RVR. He was sent here. He was completely asymptomatic, he has no shortness of breath, palpitations, dizziness or chest pain. He admits he has been drinking alcohol again after sustaining for a few months after his cardioversion in October. He recently had a sleep study which she has not yet gotten the results of. In our system and shows it is positive for moderate obstructive sleep apnea. Advised him to call their office next week and discuss CPAP. DIAGNOSTICS EKG reveals atrial fib heart rate of 91. Telemetry tracings indicate atrial fib with controlled ventricular rate. Chest xray negative for acute cardiopulmonary process. Laboratory reviewed, CBC unremarkable, sodium 137, potassium 4.2, creatinine 0.98, magnesium 2.0, troponin negative 3. Current cardiac medications include L across 5 mg twice a day, Zetia 10 mg fany y, Toprol 50 mg at bedtime, rosuvastatin 10 mg at bedtime, amlodipine/benazepril 5/20 mg daily. REVIEW OF SYSTEMS At the time of my exam: CONSTITUTIONAL: Denies fever or chills. CARDIOVASCULAR: Denies chest pain, shortness of breath, orthopnea, PND or palpitations. RESPIRATORY: Denies cough. GASTROINTESTINAL: Denies abdominal pain, diarrhea, constipation, nausea or vomiting. MUSCULOSKELETAL: Denies myalgias. NEUROLOGIC: Denies numbness, tingling, headache or weakness. ENDOCRINE: Denies fatigue, weight change, polydipsia or polyurina. GENITOURINARY: Denies burning, hematuria or urgency with micturation. HEMATOLOGIC: Denies history of anemia or bleeding. PHYSICAL EXAMINATION Blood pressure 117/63 heart rate 79 afebrile and maintaining oxygen saturation on room air. CONSTITUTIONAL: No apparent distress. HEENT: Head is normocephalic. Pupils are equal, round. Sclerae anicteric. Mucous membranes of the mouth are moist. No JVD. No carotid bruit. CHEST EXAMINATION: Lungs are clear to auscultation. No chest wall tenderness is noted on palpation or with deep breathing. HEART EXAMINATION: Irregular rate and rhythm. S1, S2 heard. No murmurs, gallops or rub. ABDOMEN: Soft, nontender. EXTREMITIES: 2+ peripheral pulses, no lower extremity edema and no calf tenderness. NEUROLOGIC EXAMINATION: Patient is awake, alert and oriented x3. ASSESSMENT Paroxysmal atrial fibrillation with rapid ventricular rate Hypertension Hyperlipidemia Alcohol use Obesity PLAN Discontinue Cardizem infusion. Initiate flecainide 50 mg twice a day. Continue all her questions for thromboembolic protection. Advise complete alcohol cessation, he verbalizes understanding and is in agreement. Follow-up in the office next week with an EKG. He can be discharged home today, new Rx sent to his pharmacy. Nurse Practitioner note has been reviewed, I agree with a documented findings and plan of care. Patient was seen and examined. Past Medical History Past Medical History: Atrial Fibrillation, GERD/Reflux, Hyperlipidemia, Hypertension, Osteoarthritis (OA), Skin Disorder Additional Past Medical History / Comment(s): sleep study x2, does not know results. DERIK with Dr. Pitt 10/2022 History of Any Multi-Drug Resistant Organisms: None Reported Additional Past Surgical History / Comment(s): colonoscopy, several sinus surgeries Past Anesthesia/Blood Transfusion Reactions: No Reported Reaction Additional Past Anesthesia/Blood Transfusion Reaction / Comment(s): problems with intubation with last sinus surgery - pt not sure what the problem was. no paper work. "throat was cut" pt refused to complete surgery. no treatment done Past Psychological History: Bipolar Additional Psychological History / Comment(s): ? ADD Smoking Status: Former smoker Past Alcohol Use History: Occasional Additional Past Alcohol Use History / Comment(s): quit smoker at 21 yrs old < 1ppd, Hx lifelong drinker, tried quitting alcohol last september. states he currently drinks 10-15 drinks per day 05/05/2023 Past Drug Use History: None Reported - Past Family History Father History Unknown: Yes Additional Family Medical History / Comment(s): didnt know bio dad Mother Family Medical History: Cancer, Coronary Artery Disease (CAD) Brother(s) Family Medical History: Coronary Artery Disease (CAD) Sister(s) Family Medical History: Coronary Artery Disease (CAD) Additional Family Medical History / Comment(s): stents , pacemaker Medications and Allergies Home Medications Medication Instructions Recorded Confirmed Type Apixaban [Eliquis] 5 mg PO BID 11/08/22 05/04/23 History Dupilumab [Dupixent Pen] 300 mg SQ Q14D 11/08/22 05/04/23 History Ezetimibe [Zetia] 10 mg PO DAILY 11/08/22 05/04/23 History Famotidine 40 mg PO HS 11/08/22 05/04/23 History Rosuvastatin Calcium 10 mg PO HS 11/08/22 05/04/23 History lamoTRIgine 200 mg PO DAILY 11/08/22 05/04/23 History risperiDONE 3 mg PO HS 11/08/22 05/04/23 History Doxycycline Hyclate 100 mg PO BID 05/04/23 05/04/23 History HYDROcodone/APAP 10-325MG [[place] 1 tab PO Q4-6H PRN 05/04/23 05/04/23 History 10-325] Metoprolol Succinate (ER) [Toprol 50 mg PO HS 05/04/23 05/04/23 History Xl] Pantoprazole [Protonix] 40 mg PO DAILY@1500 05/04/23 05/04/23 History amLODIPine BESYLATE/BENAZEPRIL 1 cap PO DAILY 05/04/23 05/04/23 History [Lotrel 5-20 mg Capsule] predniSONE See Taper PO DAILY 05/04/23 05/04/23 History Allergies Allergy/AdvReac Type Severity Reaction Status Date / Time No Known Allergies Allergy Verified 05/04/23 14:34 Physical Exam Vitals: Vital Signs Temp Pulse Pulse Resp BP BP Pulse Ox 05/05/23 08:45 83 16 131/83 96 05/05/23 08:05 96 05/05/23 04:00 98.2 F 72 18 119/70 97 05/05/23 00:00 64 16 117/70 98 05/04/23 20:55 90 18 118/70 97 05/04/23 20:04 98 16 131/87 97 05/04/23 20:00 97.8 F 71 16 128/81 97 05/04/23 17:58 98 16 109/69 97 05/04/23 16:02 122 H 16 128/73 97 05/04/23 15:14 108 H 16 130/79 98 05/04/23 14:29 111 H 18 96 05/04/23 14:05 155 H 18 122/70 96 05/04/23 13:29 98.1 F 115 H 20 111/78 99 Intake and Output 05/04/23 05/05/23 05/05/23 22:59 06:59 14:59 Intake Total 8 370 Balance 8 370 Intake: IV 10 Invasive Line 1 10 Intake, IV Titration 8 Amount Diltiazem 125 mg In 8 Sodium Chloride 0.9% 100 ml @ 5 MG/HR 5 mls/hr IV .Q24H [facility] Rx#:[id number] Oral 360 Other: Voiding Method Toilet # Voids 1 1 Weight 126.099 kg Results 05/04/23 14:00 05/04/23 14:00 Cardiac Enzymes 05/04/23 05/04/23 05/04/23 Range/Units 14:00 14:00 16:52 AST 69 H (17-59) U/L Troponin I <0.012 <0.012 (0.000-0.034) ng/mL 05/04/23 Range/Units 19:29 AST (17-59) U/L Troponin I <0.012 (0.000-0.034) ng/mL Coagulation 05/04/23 Range/Units 14:00 PT 11.7 (10.0-12.5) sec APTT 26.7 (22.0-30.0) sec CBC 05/04/23 Range/Units 14:00 WBC 4.6 (3.8-10.6) k/uL RBC 4.96 (4.30-5.90) m/uL Hgb 14.6 (13.0-17.5) gm/dL Hct 44.3 (39.0-53.0) % Plt Count 155 (150-450) k/uL Comprehensive Metabolic Panel 05/04/23 Range/Units 14:00 Sodium 137 (137-145) mmol/L Potassium 4.2 (3.5-5.1) mmol/L Chloride 105 (98-107) mmol/L Carbon Dioxide 25 (22-30) mmol/L BUN 15 (9-20) mg/dL Creatinine 0.98 (0.66-1.25) mg/dL Glucose 135 H (74-99) mg/dL Calcium 9.9 (8.4-10.2) mg/dL AST 69 H (17-59) U/L ALT 74 H (4-49) U/L Alkaline Phosphatase 78 (38-126) U/L Total Protein 8.2 (6.3-8.2) g/dL Albumin 4.7 (3.5-5.0) g/dL Current Medications Generic Name Dose Route Start Last Admin Trade Name Freq PRN Reason Stop Dose Admin Hydrocodone Bitart/Acetaminophen 1 each 05/04/23 15:49 Hydrocodone/Apap 10-325mg 1 Each Tab PO Q4H PRN Pain after surgery Amlodipine Besylate 5 mg 05/05/23 09:00 05/05/23 08:51 Amlodipine 5 Mg Tab PO 5 mg DAILY AURELIO Administration Apixaban 5 mg 05/04/23 16:00 05/05/23 08:51 Apixaban 5 Mg Tab PO 5 mg BID AURELIO Administration Protocol Atorvastatin Calcium 20 mg 05/04/23 21:00 05/04/23 23:20 Atorvastatin 20 Mg Tab PO 20 mg HS AURELIO Administration Ezetimibe 10 mg 05/05/23 09:00 05/05/23 08:51 Ezetimibe 10 Mg Tab PO 10 mg DAILY AURELIO Administration Famotidine 40 mg 05/04/23 21:00 05/04/23 23:20 Famotidine 20 Mg Tab PO 40 mg HS AURELIO Administration Diltiazem HCl 125 mg/ Sodium 125 mls @ 5 mls/hr 05/04/23 13:45 05/04/23 16:03 Chloride IV 10 mg/hr .Q24H AURELIO 10 mls/hr Infusion 5 MG/HR Lamotrigine 200 mg 05/05/23 09:00 05/05/23 08:51 Lamotrigine 100 Mg Tab PO 200 mg DAILY AURELIO Administration Lisinopril 20 mg 05/05/23 09:00 05/05/23 08:51 Lisinopril 20 Mg Tab PO 20 mg DAILY AURELIO Administration Metoprolol Succinate 50 mg 05/04/23 21:00 05/04/23 23:20 Metoprolol Succinate (Er) 50 Mg Tab.Er.24h PO 50 mg HS AURELIO Administration Nitroglycerin 0.4 mg 05/04/23 15:48 Nitroglycerin Sl Tabs 0.4 Mg Tab SUBLINGUAL Q5M PRN Chest Pain Pantoprazole Sodium 40 mg 05/05/23 15:00 Pantoprazole 40 Mg Tablet PO DAILY@1500 [facility] Risperidone 3 mg 05/04/23 21:00 05/04/23 23:20 Risperidone 1 Mg Tab PO 3 mg HS [facility] Administration Intake and Output 05/04/23 05/05/23 05/05/23 22:59 06:59 14:59 Intake Total 8 370 Balance 8 370 Intake: IV 10 Invasive Line 1 10 Intake, IV Titration 8 Amount Diltiazem 125 mg In 8 Sodium Chloride 0.9% 100 ml @ 5 MG/HR 5 mls/hr IV .Q24H [facility] Rx#:[id number] Oral 360 Other: Voiding Method Toilet # Voids 1 1 Weight 126.099 kg 05/04/23 14:00 05/04/23 14:00
[2023-05-05] MEDS ORDERED: PANTOPRAZOLE 40 MG TABLET PO SCH (15:00)
--- NOTE | 2023-05-06 12:53 | P.DS ---
Providers Date of admission: 05/04/23 15:48 Expected date of discharge: 05/05/23 Attending physician: Hi Lopez MD Consults: 05/04/23 15:48 Consult Physician Urgent Consulting Provider: Yasir Hess Consult Reason/Comments: afib rvr Do you want consulting provider notified?: Yes Primary care physician: Hansa Beavers Hospital Course: Discharge diagnoses; Paroxysmal A-fib with RVR Hyperlipidemia History of seizures Hospital course; patient 63-year-old gentleman past medical history significant for persistent A-fib who was sent into the ER from hand surgeon's office after being found to be in A-fib with RVR. Patient was scheduled to undergo hand surgery today but when he presented to the hand surgeons office, patient was found to be in A-fib with RVR. 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 Patient denies any complaint of palpitation. There was no complaint of chest pain. There was no complaint of orthopnea or PND. There is no complaint of nausea, vomiting, abdominal pain. Initial lab work done in the ER showed WBC 4.6, hemoglobin 14.6, platelet count 155, sodium 137, potassium 4.2, BUN 15, creatinine 0.98, glucose 135, troponin 0.012 EKG done in the ER showed heart rate of 91, no ST segment elevation or depression seen, no T-wave inversions seen. Irregular rate and rhythm Chest x-ray done in the ER no evidence for acute pulmonary disease Patient admitted to internal medicine service 05/05. Patient evaluated by cardiology, they started patient on flecainide. Cardiology cleared the patient for discharge PHYSICAL EXAMINATION: GENERAL: The patient is alert and oriented x3, not in any acute distress. Well developed, well nourished. HEENT: Pupils are round and equally reacting to light. EOMI. No scleral icterus. No conjunctival pallor. Normocephalic, atraumatic. No pharyngeal erythema. No thyromegaly. CARDIOVASCULAR: S1 and S2 present. No murmurs, rubs, or gallops. PULMONARY: Chest is clear to auscultation, no wheezing or crackles. ABDOMEN: Soft, nontender, nondistended, normoactive bowel sounds. No palpable organomegaly. MUSCULOSKELETAL: No joint swelling or deformity. EXTREMITIES: No cyanosis, clubbing, or pedal edema. NEUROLOGICAL: Gross neurological examination did not reveal any focal deficits. SKIN: No rashes. Dictation was produced using [employer] dictation software. please excuse any grammatical, word or spelling errors. Patient Condition at Discharge: Fair Plan - Discharge Summary Discharge Rx Participant: No New Discharge Prescriptions: New Flecainide [Tambocor] 50 mg PO Q12HR #60 tab Continue Rosuvastatin Calcium 10 mg PO HS risperiDONE 3 mg PO HS Doxycycline Hyclate 100 mg PO BID Metoprolol Succinate (ER) [Toprol XL] 50 mg PO HS Pantoprazole [Protonix] 40 mg PO DAILY@1500 predniSONE See Taper PO DAILY HYDROcodone/APAP 10-325MG [[place] 10-325] 1 tab PO Q4-6H PRN PRN Reason: Pain after surgery Dupilumab [Dupixent Pen] 300 mg SQ Q14D Famotidine 40 mg PO HS Ezetimibe [Zetia] 10 mg PO DAILY lamoTRIgine 200 mg PO DAILY Apixaban [Eliquis] 5 mg PO BID amLODIPine BESYLATE/BENAZEPRIL [Lotrel 5-20 mg Capsule] 1 cap PO DAILY Discharge Medication List Apixaban [Eliquis] 5 mg PO BID 11/08/22 [History] Dupilumab [Dupixent Pen] 300 mg SQ Q14D 11/08/22 [History] Ezetimibe [Zetia] 10 mg PO DAILY 11/08/22 [History] Famotidine 40 mg PO HS 11/08/22 [History] Rosuvastatin Calcium 10 mg PO HS 11/08/22 [History] lamoTRIgine 200 mg PO DAILY 11/08/22 [History] risperiDONE 3 mg PO HS 11/08/22 [History] Doxycycline Hyclate 100 mg PO BID 05/04/23 [History] HYDROcodone/APAP 10-325MG [[place] 10-325] 1 tab PO Q4-6H PRN 05/04/23 [History] Metoprolol Succinate (ER) [Toprol XL] 50 mg PO HS 05/04/23 [History] Pantoprazole [Protonix] 40 mg PO DAILY@1500 05/04/23 [History] amLODIPine BESYLATE/BENAZEPRIL [Lotrel 5-20 mg Capsule] 1 cap PO DAILY 05/04/23 [History] predniSONE See Taper PO DAILY 05/04/23 [History] Flecainide [Tambocor] 50 mg PO Q12HR #60 tab 05/05/23 [Rx] Follow up Appointment(s)/Referral(s): Ke Pitt MD [Medical Doctor] - 1 Week (Walk in EKG in the office next week and then follow up appointment in 2 weeks. ) Hansa Beavers DO [Primary Care Provider] - 1-2 days (Please call to schedule follow up) Patient Instructions/Handouts: A-fib (Atrial Fibrillation) (IP) Discharge Disposition: HOME SELF-CARE
== END 2023-05-05 16:08 | disposition home or self-care (01) ==
LOC: EC 13:27 → INTOOBSV 15:48 → 3SCARD 15:48 → UNDODISIN 05-05 16:08
PROVIDERS: ADMIT Internal Medicine; ATTEND Internal Medicine
DX: I48.0 Paroxysmal atrial fibrillation (principal); I10 Essential (primary) hypertension; G47.33 Obstructive sleep apnea (adult) (pediatric); E78.5 Hyperlipidemia, unspecified; F10.90 Alcohol use, unspecified, uncomplicated; E66.9 Obesity, unspecified; Z68.30 Body mass index [BMI] 30.0-30.9, adult; Z79.01 Long term (current) use of anticoagulants; Z79.52 Long term (current) use of systemic steroids; Z79.899 Other long term (current) drug therapy; Z87.891 Personal history of nicotine dependence; Z86.69 Personal history of other diseases of the nervous system and sense organs
CPT/HCPCS: 96376; 96365; 96366; 99291; 36415; 94760; 93005; 80053; 83735; 84484; 85025; 85610; 85730; 71046; G0378 ×2

== ENCOUNTER → 2024-09-15 | Outpatient (CLI) | payer OTHER ==
--- NOTE | 2024-09-15 09:59 | US ---
EXAMINATION TYPE: US abdomen complete DATE OF EXAM: 09/15/2024 COMPARISON: NONE CLINICAL INDICATION: Male, 64 years old with history of K76.0 FATTY (CHANGE OF) LIVER, NOT ELSEWHERE CLASS; Hx HTN and daily alcohol use TECHNIQUE: Grayscale and color Doppler imaging of the abdomen was performed. FINDINGS: EXAM MEASUREMENTS: Liver Length: 18.7 cm Gallbladder Wall: 0.2 cm CBD: 0.7 cm, color Doppler imaging was utilized to isolate the common bile duct for measurement. Spleen: 12.3 cm Right Kidney: 10.9 x 6.3 x 5.0 cm Left Kidney: 11.3 x 6.7 x 5.3 cm BROADCAST CHECKER NOTES: Pancreas: No discrete abnormality. Pancreas is poorly visualized. Tail obscured by overlying bowel ga s Liver: Increased attenuation, decreased visualization of vessels suggestive of fatty infiltrate, foc al fatty sparing seen adjacent to gallbladder Gallbladder: wnl Evidence for sonographic Blackwell's sign: No CBD: Dilated Spleen: wnl Right Kidney: wnl, No hydronephrosis, calculi or masses seen Left Kidney: wnl, No hydronephrosis, or calculi seen; ? Hypoechoic area seen Upper IVC: wnl Abd Aorta: wnl IMPRESSION: 1. Mild fatty infiltration of liver. Hepatomegaly is present. Some focal fatty sparing may be present . Follow-up recommended. [facility], , 09/15/2024 9:56 AM
== END | disposition home or self-care (01) ==
LOC: RADUSWWP 08:46
PROVIDERS: ATTEND Family Medicine
DX: K76.0 Fatty (change of) liver, not elsewhere classified (principal); K82.8 Other specified diseases of gallbladder; R16.0 Hepatomegaly, not elsewhere classified
CPT/HCPCS: 76700